=== PATIENT | female | born 1985 | race Caucasian/White ===

== ENCOUNTER 2020-08-02 07:35 | Outpatient (CLI) | payer OTHER ==
[2020-08-02 09:17] LABS: UDS - AMPHET NEGATIVE QUAL (NEGATIVE); UDS - BARB NEGATIVE QUAL (NEGATIVE); UDS - BENZO NEGATIVE QUAL (NEGATIVE); UDS - COCAINE NEGATIVE QUAL (NEGATIVE); UDS - OPIATE NEGATIVE QUAL (NEGATIVE); UDS - PCP NEGATIVE QUAL (NEGATIVE); UDS - THC NEGATIVE QUAL (NEGATIVE)
[2020-08-02 10:28] LABS: BACTERIA MANY HPF (NONE SEEN); BILIRUBIN NEGATIVE (NEGATIVE); KETONE NEGATIVE (NEGATIVE); NITRITE NEGATIVE (NEGATIVE); SQUAMOUS EPITHELIAL 0-5 HPF (0-4); UROBILINOGEN NORMAL mg/dL (< 2)
== END 2020-08-02 10:40 | disposition home or self-care (01) ==
LOC: D.LDO 07:35
PROVIDERS: Obstetrics & Gynecology
DX: O47.9 False labor, unspecified (principal)